=== PATIENT | male | born 1960 | race Caucasian/White ===

== ENCOUNTER 2016-12-14 14:36 | Emergency (ER) | payer OTHER ==
[~2016-12-14 14:36] MED LIST: ALBUTEROL17 GM INH; ALPRAZOLAM PO; AMLODIPINE BESYL5 MG PO; ASPIRIN325 M1 PO; ATENOLOL PO; BACTRIM DS TABL1 TA1 PO; BYSTOLIC10 MG PO; CENTRUM SILVER PO; COLCRYS0.6 MG PO; DEPO-TESTOT200 MG/ML IM; FLEXERIL PO; HYCODAN COUGH PO; IBUPROFEN PO; KEFLEX500 MG PO; LIPITOR PO; LIPITOR20 MG PO; LODINE PO; MAXZIDE 75/50 T1 TAB PO; NEXIUM PO; PERCOCET 5-3251 TAB PO; PHENERGAN PO; PREDNISONE PO; TAMIFLU75 MG PO; TENORMIN50 MG PO; VICODIN 5/1 TAB 5/50 PO; ZITHROMAX PO; ZYLOPRIM PO; ZYLOPRIM100 MG PO
== END 2016-12-14 14:47 | disposition home or self-care (01) ==
LOC: SED 14:36
DX: J06.9 Acute upper respiratory infection, unspecified (principal); R21 Rash and other nonspecific skin eruption
CPT/HCPCS: 99283